=== PATIENT | female | born 1960 | race Caucasian/White ===

== ENCOUNTER 2018-11-08 02:43 | Inpatient (IN) ==
[2018-11-08] MEDS ORDERED: Morphine Inj 4 MG/ML Vial IV.PUSH ONE (02:55)
[2018-11-08] MEDS ORDERED: Morphine Inj 4 MG/ML Vial ONE (03:21)
[2018-11-08] MEDS ORDERED: HYDROmorphone PF Inj 1 MG/ML Ampul ONE (03:31)
[2018-11-08 03:44] LABS: Baso % (Auto) 0.3 % (0.0-2.0); Eos # (Auto) 0.1 th/mm3 (0.0-0.4); Eos % (Auto) 0.4 % (0.0-4.0); Hematocrit 45.6 % (35.0-46.0); Hemoglobin 15.4 gm/dL (11.6-15.3); Lymph # (Auto) 2.2 th/mm3 (1.0-4.8); Lymph % (Auto) 15.1 % (9.0-44.0); Mean Corpuscular HGB Conc 33.7 % (32.0-36.0); Mean Corpuscular Hemoglobin 29.9 pg (27.0-34.0); Mean Corpuscular Volume 88.7 fL (80.0-100.0); Mean Platelet Volume 7.7 fL (7.0-11.0); Mono # (Auto) 0.7 th/mm3 (0.0-0.9); Mono % (Auto) 4.6 % (0.0-8.0); Neut # (Auto) 11.7 th/mm3 (1.8-7.7); Neut % (Auto) 79.6 % (16.0-70.0); Platelet Count 241 th/mm3 (150-450); Red Blood Count 5.14 mil/mm3 (4.00-5.30); Red Cell Distribution Width 13.3 % (11.6-17.2); White Blood Count 14.7 th/mm3 (4.0-11.0)
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
[2018-11-08 03:57] LABS: Calcium 8.6 mg/dL (8.5-10.1); Carbon Dioxide 27.4 meq/L (21.0-32.0); Potassium 3.1 meq/L (3.5-5.1)
[2018-11-08 03:58] LABS: Activated Partial Thrombo Time 26.5 sec (23.4-31.7)
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
[2018-11-08] MEDS ORDERED: Acetaminophen 325 MG Tablet PO PRN (07:21)
[2018-11-08] MEDS ORDERED: Morphine Sulfate Inj 2 MG/ML Vial IV.PUSH PRN (07:21)
[2018-11-08] MEDS ORDERED: Lidocaine 5% Patch T-DERMAL SCH (09:00)
[2018-11-08] MEDS ORDERED: Docusate Sodium 100 MG Capsule PO SCH (09:00)
[2018-11-08] MEDS: Methocarbamol 500 MG Tablet PO SCH ×2 (11:02→15:39)
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
[2018-11-08 15:39] VITALS: BP 130/87; PULSE 85; RESP 18; O2SAT 97
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
== END 2018-11-08 17:54 | disposition home or self-care (01) | DRG 964 ==
LOC: NEPI 02:43 → NEDA 04:15 → NEDH 07:48 → NEDA 17:54
PROVIDERS: ADMIT Surgery; ATTEND Surgery
CPT/HCPCS: 70450; 71010; 71045; 71260; 72125; 72170; 73080; 73560; 74177; 80048; 82435; 82565; 82947; 83735; 84132; 84295; 84520; 85025; 85610; 85730; 86850; 86900; 86901; 90774; 90775; 90784; 94150; 96374; 96375; 99291; C8952; G0390; J1170; J2270; J2405; J2550; Q9967